=== PATIENT | female | born 1975 | race Caucasian/White ===

== ENCOUNTER 2023-08-01 11:58 | Emergency (ER) | payer OTHER, SELFPAY ==
[2023-08-01] VITALS (13 sets, daily range): BP systolic 128–187; BP diastolic 81–102; PULSE 76–98; RESP 13–25; TEMP 37.4; O2SAT 96–100
--- NOTE | ~2023-08-01 | CT_ITS ---
EXAMINATION: CT abdomen pelvis w con DATE: 08/01/2023 13:38 INDICATION: Abdomen pain TECHNIQUE: Computed tomography (CT) of the abdomen and pelvis was performed with 100 cc Omnipaque 350 intravenous contrast. The dose-length product was 570.51 mGy-cm. Automated exposure control and iter ative reconstruction technique were employed. COMPARISON: None. FINDINGS: Lung bases are unremarkable. Heart size normal. No significant pleural or pericardial effus ion. Fatty infiltration of the liver. The spleen, pancreas, adrenal glands and kidneys are unremarkable. T here is acute diverticulitis of the proximal sigmoid colon without evidence for perforation or absces s. Small amount of free fluid in the pelvis. No significant vascular abnormality. No lymphadenopathy. Gallbladder is present. Moderate lumbar spondylosis with dextroscoliosis. IMPRESSION: 1. Acute uncomplicated proximal sigmoid diverticulitis. Reviewed, dictated and finalized at location A.
[2023-08-01 13:32] LABS: Estimated CRCL calculation 112 ml/min; Estimated Glomerular Filt Rate > 60
[2023-08-01 13:40] LABS: Basophils Absolute Auto 0.1 K/mm3 (0.0-0.1); Basophils Percent Auto 0.5 % (0.2-1.2); Eosinophils Absolute Auto 0.1 K/mm3 (0-0.3); Eosinophils Percent Auto 0.4 % (0-4.4); Hematocrit 39.5 % (37.0-47.0); Hemoglobin 13.1 g/dL (12.0-15.0); Immature Granulocyte Absolute 0.04 K/mm3 (0.00-0.031); Immature Granulocyte Percent A 0.4 % (0-0.5); Lymphocytes Absolute Auto 1.38 K/mm3 (0.9-3.2); Lymphocytes Percent Auto 12.3 % (18.3-44.2); Mean Corpuscular HGB Conc 33.2 g/dl (32-36); Mean Corpuscular Hemoglobin 30.7 pg (26-34); Mean Corpuscular Volume 92.5 fl (80-100); Mean Platelet Volume 10.2 fl (7.4-10.4); Monocytes Absolute Auto 1.2 K/mm3 (0.1-0.6); Monocytes Percent Auto 10.9 % (2.6-8.5); Neutrophils Absolute Auto 8.5 K/mm3 (1.3-6.7); Neutrophils Percent Auto 75.5 % (45.5-73.1); Platelet Count Result 257 k/mm3 (150-375); Red Blood Count 4.27 M/mm3 (4.2-5.4); Red Cell Distribution Width 12.8 % (11.5-14.5); White Blood Count 11.3 K/mm3 (4.5-10.0)
[2023-08-01 13:42] LABS: Appearance Urine Clear (Clear); Bilirubin Urine Negative (Negative); Blood Urine Negative (Negative); Color Urine Yellow (Yellow); Glucose Urine UA Negative (Negative); Ketones Urine Negative (Negative); Leukocyte Esterase Ur Negative LEU/UL (Negative); Nitrate Urine Negative (Negative); Protein Urine Negative (Negative); Specific Grav Ur 1.005 (1.001-1.035); Urobilinogen Urine 0.2 mg/dL (<2.0); pH Urine 7.5 (5.0-9.0)
[2023-08-01 13:47] LABS: Add Urine Microscopic? NO
[2023-08-01 13:51] LABS: Alanine Aminotransferase 31 U/L (6-35); Albumin Level 4.7 g/dL (3.5-5.1); Alkaline Phosphatase 76 U/L (38-126); Anion Gap 9 mmol/L (8-16); Aspartate Amino Transferase 30 U/L (14-36); Bilirubin,Total 1.2 mg/dL (0.2-1.3); Blood Urea Nitrogen 10 mg/dL (7-17); Calcium 9.4 mg/dL (8.4-10.2); Carbon Dioxide 27 mmol/L (22-30); Chloride 101 mmol/L (98-107); Estimated CRCL calculation 95 ml/min; Estimated Glomerular Filt Rate > 60; Glucose 102 mg/dL (65-110); Lipase 96 U/L (23-300); Potassium 4.1 mmol/L (3.4-5.0); Sodium 137 mmol/L (137-145)
--- NOTE | 2023-08-01 14:16 | ED.GENADULT ---
HPI - General Adult General Chief complaint: Abdominal Pain Stated complaint: abd pain/fever Time Seen by Provider: 08/01/23 12:27 History of Present Illness HPI narrative: Promise Machado is a 47 y/o female with no significant PMHx who presents today with complaints of abdominal pain that was intermittent and Wednesday and then yesterday and today pain has been constant and localized to the left lower quadrant. Reports having a fever yesterday/ and increased pain, she had BM today that was normal, denies nausea/vomiting. Related Data Allergies Allergy/AdvReac Type Severity Reaction Status Date / Time No Known Allergies Allergy Verified 08/01/23 13:01 Review of Systems Review of Systems: CONSTITUTIONAL: Denies fever, chills, or sweats. EYES: Denies visual changes, redness, or discharge. ENT: Denies rhinorrhea, congestion, sore throat, or otalgia. CARDIOVASCULAR: Denies chest pain, palpitations, or edema. RESPIRATORY: Denies cough or dyspnea. GASTROINTESTINAL: Reports abdominal pain, more left lower quadrant/ no nausea/vomiting GENITOURINARY: Denies dysuria or hematuria. SKIN: Denies rash or itching. MUSCULOSKELETAL: Denies back pain, joint pain, or myalgia. NEUROLOGIC: Denies headache, numbness, dizziness, or weakness. PSYCHIATRIC: Denies anxiety or depression. Exam Narrative: GENERAL: Well-appearing, well-nourished, and in no acute distress. HEAD: Normocephalic, atraumatic. EYES: PERRLA and EOMI. ENT: Nares clear, no rhinorrhea or epistaxis. Mucous membranes moist. Oropharynx without tonsillar hypertrophy exudate or other lesions. Bilateral TMs pearly [place] nonbulging NECK: Supple. No adenopathy or masses. No carotid bruits or JVD CHEST: Clear to auscultation. No respiratory distress. No wheezes rales or rhonchi HEART: Regular rate and rhythm. No murmur heard. Normal peripheral pulses. ABDOMEN: Soft, nondistended, normal active bowel sounds, pain noted to the left lower quadrant. EXTREMITIES: Normal range of motion. No edema. SKIN: Warm, dry, no rash. NEURO: No focal deficits. Alert and oriented x3. PSYCH: Normal mood and affect. Course Vital Signs Vital signs: Vital Signs Temperature 37.4 C 08/01/23 12:15 Pulse Rate 94 08/01/23 12:15 Respiratory Rate 18 08/01/23 12:15 Blood Pressure 187/102 H 08/01/23 12:15 Pulse Oximetry 100 08/01/23 12:15 Oxygen Delivery Room Air 08/01/23 12:15 Temperature 37.4 C 08/01/23 12:15 Pulse Rate 91 08/01/23 14:39 Respiratory Rate 22 H 08/01/23 14:39 Blood Pressure 187/102 H 08/01/23 12:15 Pulse Oximetry 99 08/01/23 14:39 Oxygen Delivery Room Air 08/01/23 12:15 Medical Decision Making MDM Narrative Medical decision making narrative: On exam pt is noted to have left lower abdominal pain worse with palpation, reports of some mild nausea no vomiting Last normal BM was today reports fever yesterday Concern for : diverticulitis/ SBO/ hernia/ constipation / colitis/ enteritis/ Labs are stable wbc up to 11 , lactate negative CT is showing uncomplicated diverticulitis Patient is feeling a lot better after the pain medications, discussed with pt that since it is a stable infection d/c home with oral antibiotics is an option, unless her pain is not controlled, or if she cannot keep down her antibiotics. Patient wishes to be d/c home with antibitotics and does not want to be admitted. Strict return precautions provided all questions answered encouraged pt to follow up with PCP this week. Medical Records Medical records reviewed: Yes I reviewed the external patient's medical records. Vital Signs Vital Signs: Vital Signs Temperature 37.4 C 08/01/23 12:15 Pulse Rate 94 08/01/23 12:15 Respiratory Rate 18 08/01/23 12:15 Blood Pressure 187/102 H 08/01/23 12:15 Pulse Oximetry 100 08/01/23 12:15 Oxygen Delivery Room Air 08/01/23 12:15 Temperature 37.4 C 08/01/23 12:15 Pulse Rate 91
[2023-08-01] MEDS: KETOROLAC 30 MG/ML VIAL (*BKC) IV PUSH (14:25)
[2023-08-01] MEDS: FAMOTIDINE 20 MG/2 ML VIAL IV PUSH (14:26)
[2023-08-01] MEDS: MORPHINE SULFATE (*CRX) 4 MG/ML INJ IV PUSH (14:28)
[2023-08-01] MEDS: ONDANSETRON INJ 4 MG/2 ML VIAL IV PUSH (14:28)
[2023-08-01] MEDS: AMOXICILLIN/CLAVULANATE K 875-125 MG TAB 1 TABLET PO (16:09)
== END 2023-08-01 16:10 | disposition home or self-care (01) ==
PROVIDERS: Emergency Medicine; Emergency Provider Nurse Practitioner Family; PCP Family Medicine
DX: K57.32 Diverticulitis of large intestine without perforation or abscess without bleeding (principal)
CPT/HCPCS: 74177; 80053; 81003; 81025; 83605; 83690; 85025; 96374; 96375; 99284; A9270; J1885; J2270; J2405; Q9967

== ENCOUNTER 2023-10-21 08:31 | Day surgery (SDC) | payer OTHER, SELFPAY ==
[2023-09-09 14:24] VITALS: BMI 28.7
[2023-10-21 09:59] VITALS: BP 151/95; PULSE 87; RESP 18; TEMP 36.9; O2SAT 100
--- NOTE | 2023-10-21 10:06 | PM.HPGS ---
History of Present Illness History of Present Illness Consent: Risks, benefits, and alternatives have been discussed and questions answered. Patient agrees to proceed with procedure. Chief complaint: Neoplasm Screening Narrative: Promise Machado is a 48 year old female Presents for screening colonoscopy. Patient's current weight appetite and bowel movements are normal. She denies abdominal pain. She has had no bleeding. Patient reports in July had a bout of diverticulitis. Her abdominal pain has improved after course of antibiotics. Bowel habits have returned to normal. Family history is noncontributory. Review of Systems Review of Systems: Review of systems is noncontributory. [facility] Social History Social History Smoking status: Former smoker Alcohol intake: current Drinks per week: 4 Substance use type: does not use Living arrangements: with family Spiritual care concerns: No Meds Home Medications and Allergies Home Medications Medication Instructions Recorded Confirmed Type No Home Medications 10/21/23 10/21/23 History Allergies Allergy/AdvReac Type Severity Reaction Status Date / Time No Known Allergies Allergy Verified 10/21/23 09:57 Vital Signs Vital Signs - 24 hr 10/21/23 09:59 Temperature 98.4 F Pulse Rate 87 Respiratory Rate 18 Blood Pressure 170/96 H Pulse Oximetry 100 Oxygen Delivery Room Air Exam Narrative: Physical exam reveals patient to stable. HEENT exam is unremarkable. Patient is anicteric. Lungs are clear to auscultation and percussion. Heart is without murmur or extra sounds. Abdomen bowel sounds are present soft nontender with no organomegaly. Digital external rectal exam normal. Assessment and Plan Assessment and plan (1) Encounter for screening colonoscopy: Code(s): Z12.11 - Encounter for screening for malignant neoplasm of colon Status: Acute Assessment and Plan: Patient presents for screening colonoscopy. She appears to be at average risk for colon polyps. Further recommendations will be given after endoscopy. (2) Diverticulitis: Code(s): K57.92 - Diverticulitis of intestine, part unspecified, without perforation or abscess without bleeding Status: Inactive Assessment and Plan: The patient has a history of diverticulitis several months ago for which she is improved. High-fiber diet is advised.
[2023-10-21] MEDS: LACTATED RINGERS 1,000 ML 150 ML IV CONT (10:13)
--- NOTE | 2023-10-21 10:23 | P.PNAN_ITS ---
Anes - Initial Pre Proc Eval Procedure: Operation Date: 10/21/23 11:00 Proposed Procedures p Screening Colonoscopy - Dread Vasquez MD Date/Time: 10/21/23 10:23 Surgeon: Dread Vasquez MD Pre Op Diagnosis: Neoplasm Screening Patient Data Age: 48 Gender: F Height: 1.6 m Weight: 73.25 kg Last Vital Signs Temp 36.9 C 10/21/23 09:59 Pulse 87 10/21/23 09:59 Resp 18 10/21/23 09:59 BP 151/95 H 10/21/23 09:59 Pulse Ox 100 10/21/23 09:59 O2 Del Method Room Air 10/21/23 09:59 Allergies Allergy/AdvReac Type Severity Reaction Status Date / Time No Known Allergies Allergy Verified 10/21/23 09:57 Home Medications Medication Instructions Recorded Confirmed Type No Home Medications 10/21/23 10/21/23 History Patient hx anesthesia problems: none Family hx anesthesia problems: none Results Review: All pre-operative results and documents have been reviewed as part of the pre- operative evaluation. PMFSH Past Medical History Medical History (Updated 10/21/23 @ 10:24 by Juan David Robin MD) Overweight Social History Social History Smoking status: Former smoker Alcohol intake: current Drinks per week: 4 Substance use type: does not use Living arrangements: with family Spiritual care concerns: No Anes - Eval Final PreProcedure Day of Procedure 10/21/23 10:23 Patient weight: overweight Heart: regular rate and rhythm Lungs: clear to auscultation Airway: Mallampati scale class II Neurological: alert and oriented Last oral intake: >/= 8 hours ASA classification: II Emergent: no Anesthetic plan: proceed Anesthesia type and monitoring: general GIVS and standard monitoring Results Review: All pre-operative results and documents have been reviewed as part of the pre- operative evaluation. Informed Consent: The patient's anesthetic plan and its attendant risks and benefits were discussed with the patient/family/POA. Questions were solicited and answers provided to the satisfaction of the patient/family/POA.
[2023-10-21 11:31] VITALS: BP 136/86; PULSE 77; RESP 16; O2SAT 100
[2023-10-21 11:41] VITALS: BP 126/93; PULSE 61; RESP 20; O2SAT 100
[2023-10-21 11:51] VITALS: BP 145/93; PULSE 72; RESP 20; O2SAT 100
--- NOTE | 2023-10-21 12:00 | WPDANESPN ---
Anes - Prog Note Post-Op Date/Time: 10/21/23 12:00 Cardiovascular status: normal Respiratory status: normal Airway patency: baseline Mental status: baseline Post-Op hydration status: normal Vital Signs: Last Vital Signs Temp 36.9 C 10/21/23 09:59 Pulse 61 10/21/23 11:41 Resp 20 10/21/23 11:41 BP 126/93 H 10/21/23 11:41 Pulse Ox 100 10/21/23 11:41 O2 Del Method Room Air 10/21/23 11:41 Pain Score (VAS): 0/10 I/O: Intake & Output 10/20/23 10/21/23 10/21/23 23:59 07:59 15:59 Intake Total 750 Balance 750 Patient Feedback: Patient satisfied with anesthetic care.
== END 2023-10-21 12:10 | disposition home or self-care (01) ==
PROVIDERS: PCP Family Medicine; Visit Provider Internal Medicine Gastroenterology
PROC: 0DJD8ZZ Inspection of Lower Intestinal Tract, Via Natural or Artificial Opening Endoscopic (ICD-10-PCS; CPT 45378; principal; 2023-10-21 11:00)
DX: Z12.11 Encounter for screening for malignant neoplasm of colon (principal); K57.30 Diverticulosis of large intestine without perforation or abscess without bleeding
CPT/HCPCS: 45378

== ENCOUNTER 2024-02-03 08:52 | Outpatient (CLI) | payer OTHER, SELFPAY ==
[2024-02-03 18:51] LABS: Basophils Absolute Auto 0.1 K/mm3 (0.0-0.1); Basophils Percent Auto 1.1 % (0.2-1.2); Eosinophils Absolute Auto 0.2 K/mm3 (0-0.3); Eosinophils Percent Auto 2.7 % (0-4.4); Hematocrit 44.1 % (37.0-47.0); Hemoglobin 13.6 g/dL (12.0-15.0); Immature Granulocyte Absolute 0.01 K/mm3 (0.00-0.031); Immature Granulocyte Percent A 0.2 % (0-0.5); Lymphocytes Absolute Auto 2.05 K/mm3 (0.9-3.2); Lymphocytes Percent Auto 37.5 % (18.3-44.2); Mean Corpuscular HGB Conc 30.8 g/dl (32-36); Mean Corpuscular Hemoglobin 29.9 pg (26-34); Mean Corpuscular Volume 96.9 fl (80-100); Mean Platelet Volume 10.3 fl (7.4-10.4); Monocytes Absolute Auto 0.6 K/mm3 (0.1-0.6); Monocytes Percent Auto 10.6 % (2.6-8.5); Neutrophils Absolute Auto 2.6 K/mm3 (1.3-6.7); Neutrophils Percent Auto 47.9 % (45.5-73.1); Platelet Count Result 257 k/mm3 (150-375); Red Blood Count 4.55 M/mm3 (4.2-5.4); Red Cell Distribution Width 13.2 % (11.5-14.5); White Blood Count 5.5 K/mm3 (4.5-10.0)
[2024-02-03 18:52] LABS: Alanine Aminotransferase 43 U/L (6-35); Albumin Level 4.6 g/dL (3.5-5.1); Alkaline Phosphatase 63 U/L (38-126); Anion Gap 8 mmol/L (4-12); Aspartate Amino Transferase 63 U/L (14-36); Bilirubin,Total 0.7 mg/dL (0.2-1.3); Blood Urea Nitrogen 14 mg/dL (7-17); Calcium 9.6 mg/dL (8.4-10.2); Carbon Dioxide 26 mmol/L (22-30); Chloride 105 mmol/L (98-107); Cholesterol 208 mg/dL (0-200); Creatine Kinase 112 U/L (30-135); Estimated Glomerular Filt Rate > 60; Glucose 87 mg/dL (65-110); HDL Direct 75 mg/dL; Magnesium 2.3 mg/dL (1.6-2.3); Potassium 4.8 mmol/L (3.4-5.0); Sodium 139 mmol/L (137-145); Triglycerides 164 mg/dL (<150)
[2024-02-03 19:02] LABS: LDL Cholesterol Direct 99 mg/dL
[2024-02-03 19:13] LABS: Appearance Urine Cloudy (Clear); Bacteria Urine Rare /hpf; Bilirubin Urine Negative (Negative); Blood Urine Negative (Negative); Color Urine Dark Yellow (Yellow); Glucose Urine UA Negative (Negative); Ketones Urine Trace mg/dL (Negative); Leukocyte Esterase Ur Trace LEU/UL (Negative); Need Manual Microscopic Reviewed; Nitrate Urine Negative (Negative); Protein Urine Trace mg/dL (Negative); RBC Urine 0-2 /hpf (0-2); Specific Grav Ur 1.022 (1.001-1.035); Squamous Epithelial Cell Urine Moderate /hpf (Few); Urobilinogen Urine 0.2 mg/dL (<2.0); WBC Urine 0-5 /hpf (0-3)
[2024-02-03 19:21] LABS: Add Urine Microscopic? YES
[2024-02-03 19:33] LABS: Iron 115 ug/dL (37-170)
[2024-02-03 19:43] LABS: Percent Iron Saturation 37 % (20-50)
[2024-02-03 19:45] LABS: Vitamin D 25 Hydroxy 43.1 ng/mL
[2024-02-03 19:56] LABS: Folic Acid 9.6 ng/mL (2.76->20)
== END 2024-02-03 08:53 | disposition home or self-care (01) ==
LOC: ANHBWCLAB 08:55
PROVIDERS: PCP Family Medicine; Visit Provider Physician Assistant
DX: E55.9 Vitamin D deficiency, unspecified (principal); E78.5 Hyperlipidemia, unspecified; R10.2 Pelvic and perineal pain; R53.83 Other fatigue
CPT/HCPCS: 36415; 80053; 80061; 81001; 82306; 82550; 82607; 82728; 82746; 83540; 83550; 83735; 84443; 85025; 87086; 87088